=== PATIENT | male | born 2000 | race Caucasian/White ===

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

== ENCOUNTER 2019-09-25 13:04 | Emergency (ER) | payer MEDICAID, OTHER ==
[2019-09-25 13:18] VITALS: BP 145/73; PULSE 80
--- NOTE | 2019-09-25 13:36 | EDM.PDOC ---
ED HPI GENERAL MEDICAL PROBLEM - General Chief Complaint: Upper Extremity Injury/Pain Stated Complaint: RIGHT HAND CRUSH INJURY Time Seen by Provider: 09/25/19 13:20 Source of Information: Reports: Patient History Limitations: Reports: No Limitations - History of Present Illness INITIAL COMMENTS - FREE TEXT/NARRATIVE: 19-year-old male with a right hand injury. He was loading some large equipment off of a truck when he sustained a crush injury to his right hand. He has a transverse abrasion across the dorsal aspect of the hand just distal to the wrist and pain with movement of the fingers. Onset: Sudden Duration: Hour(s): (1 hour ago) Location: Reports: Upper Extremity, Right Worsens with: Reports: Movement (Especially painful when trying to make a fist) Associated Symptoms: Reports: No Other Symptoms Right Hand Pain Score (Numeric/FACES): 4 - Related Data Allergies Allergy/AdvReac Type Severity Reaction Status Date / Time amoxicillin [Amoxicillin] Allergy Intermediate Rash Verified 09/25/19 13:33 Home Meds: Home Meds NK [No Known Home Meds] 08/10/13 [History] Past Medical History - Past Surgical History HEENT Surgical History: Reports: Eye Surgery, Tonsillectomy Review of Systems - Review of Systems Review Of Systems: See Below Eyes: Reports: Other (Chronic lazy eye) Respiratory: Reports: No Symptoms Cardiovascular: Reports: No Symptoms Skin: Reports: Bruising, Other (Very shallow abrasion and bruising developing across the dorsal right hand) Neurological: Denies: Paresthesia (Denies numbness to the fingers) ED EXAM, GENERAL - Physical Exam Exam: See Below Exam Limited By: No Limitations General Appearance: Alert, No Apparent Distress Head: Atraumatic Respiratory/Chest: No Respiratory Distress Extremities: Other (Exam is otherwise limited to the right hand. He has no tenderness or deformity of the wrist. There is a transverse linear abrasion and extremely shallow laceration across the proximal dorsal hand. He has pain with closing the fingers but no distal paresthesias or weakness. He is very tender to palpation through the middle metacarpals but no crepitus or deformity) Course - Vital Signs Last Recorded V/S: Last Vital Signs Temp 96.4 F 09/25/19 13:32 Pulse 80 09/25/19 13:32 Resp 16 09/25/19 13:32 BP 145/73 H 09/25/19 13:32 Pulse Ox 96 09/25/19 13:32 - Orders/Labs/Meds Orders: Active Orders 24 hr Category Date Time Status Vaccines to be Administered [RC] PER UNIT ROUTINE Care 09/25/19 13:42 Active Meds: Medications Discontinued Medications Generic Name Dose Route Start Last Admin Trade Name Sarah PRN Reason Stop Dose Admin Bacitracin 1 dose 09/25/19 13:58 09/25/19 14:03 Bacitracin Oint 1 Gm TOP 09/25/19 13:59 1 dose ONETIME ONE Administration Diphtheria/Tetanus/Acell Pertussis 0.5 ml 09/25/19 13:42 09/25/19 14:02 Adacel IM 09/25/19 13:43 0.5 ml .ONCE ONE Administration - Re-Assessments/Exams Free Text/Narrative Re-Assessment/Exam: 09/25/19 13:36 A right hand x-ray was taken. 09/25/19 13:58 X-ray was negative, patient was given a Tdap booster, the wound was cleaned and swallower bacitracin applied to the injury. It was then dressed, and he can increase activity as tolerated. Departure - Departure Time of Disposition: 14:25 Disposition: Home, Self-Care 01 Clinical Impression: Abrasion of right hand Qualifiers: Encounter type: initial encounter Qualified Code(s): S60.511A - Abrasion of right hand, initial encounter Contusion of right hand Qualifiers: Encounter type: initial encounter Qualified Code(s): S60.221A - Contusion of right hand, initial encounter - Discharge Information Instructions: Contusion, [id number] Referrals: PCP,None [Primary Care Provider] - Forms: ED Department Discharge Care Plan Goals: Keep wound covered and clean well-healing, and increase activity as tolerated. Anti-inflammatories like ibuprofen or naproxen would be helpful. Recheck at any time if concerns of infection or not healing satisfactorily. Sepsis Event Note - Evaluation Sepsis Screening Result: No Definite Risk - Focused Exam Vital Signs: Vital Signs Temp Pulse Resp BP Pulse Ox 09/25/19 13:32 96.4 F 80 16 145/73 H 96 09/25/19 13:17 96.4 F 80 16 145/73 H 96 Date Exam was Performed: 09/25/19 Time Exam was Performed: 14:59 - My Orders Last 24 Hours: My Active Orders 09/25/19 13:42 Vaccines to be Administered [RC] PER UNIT ROUTINE - Assessment/Plan Last 24 Hours: My Active Orders 09/25/19 13:42 Vaccines to be Administered [RC] PER UNIT ROUTINE
[2019-09-25] MEDS ORDERED: Diphtheria,Pertussis(Acell),Tetanus Vaccine 0.5 ML SDV IM ONE (13:42)
[2019-09-25] MEDS ORDERED: Bacitracin Oint 1 GM U/D Packet TOP ONE (13:58)
--- NOTE | 2019-09-25 14:04 | CRLCR ---
Indication: Hand injury Technique: A total of three views of the right hand were acquired. Comparison: None Findings: Bones: Alignment is normal. No acute fractures or bone lesions. There are findings related to a healed fracture of the right 5th metacarpal. There is also deformity of the PIP of the 5th digit which is likely either congenital or remote posttraumatic. Joint spaces: Unremarkable. Soft tissues: Unremarkable. Impression: 1. Findings likely related to remote trauma involving the 5th metacarpal and the 5th PIP. No visible acute fracture, dislocation or destructive process Dictated by Denys Traore MD @ Sep 25 2019 2:00PM Signed by Dr. Denys Traore @ Sep 25 2019 2:02PM
== END 2019-09-25 14:25 | disposition home or self-care (01) ==
LOC: JP.ED 13:04
DX: S60.511A Abrasion of right hand, initial encounter (principal); S60.221A Contusion of right hand, initial encounter; Z88.1 Allergy status to other antibiotic agents; Z23 Encounter for immunization; W23.1XXA Caught, crushed, jammed, or pinched between stationary objects, initial encounter
CPT/HCPCS: 73130-RT; 90471; 90715; 99283-25